=== PATIENT | female | born 1990 | race Caucasian/White ===

== ENCOUNTER 2019-03-15 21:01 | Observation (INO) ==
--- NOTE | 2019-03-15 21:33 | Diag Imaging Result Doc PS360 ---
EXAM: CHEST-1 VIEW 03/15/2019 HISTORY: fever TECHNIQUE: PA chest COMMENT: There is no evidence of acute cardiac or pulmonary disease. There are no previous studies for comparison. IMPRESSION: No acute disease. Electronically signed by Favio Brooks 03/15/2019 9:31 PM
[2019-03-15] MEDS ORDERED: NS 1,000 ML IV ONE (23:26)
[2019-03-15 23:55] LABS: BILIRUBIN URINE NEGATIVE (NEGATIVE); BLOOD URINE 2+ (NEGATIVE); CLARITY CLEAR (CLEAR); COLOR YELLOW; GLUCOSE URINE NEGATIVE (NEGATIVE); KETONE URINE NEGATIVE (NEGATIVE); LEUKOCYTES URINE NEGATIVE (NEGATIVE); NITRITE URINE NEGATIVE (NEGATIVE); PROTEIN URINE NEGATIVE (NEGATIVE); URINE BACTERIA NEGATIVE /HFP; URINE EPITHELIAL CELLS <10 /HPF (<10); URINE SOURCE CLEAN CATCH; URINE WBC <10 /HPF (<10); UROBILINOGEN URINE NORMAL
[2019-03-15 23:56] LABS: AGAP 12; ALBUMIN 4.2 g/dL (3.5-5.0); ALKALINE PHOSPHATASE 75 U/L (32-104); BUN 8 mg/dL (8-22); CALCIUM 8.9 mg/dL (8.8-10.2); CHLORIDE 103 mmol/L (98-107); CK PROFILE 91 U/L (24-173); COSMO 277; CREATININE 0.7 mg/dL (0.5-0.9); ESTIMATED GFR > 60; GLUCOSE 112 mg/dL (70-104); GOT 28 U/L (10-30); GPT 22 U/L (10-36); POTASSIUM 3.9 mmol/L (3.5-5.1); SODIUM 139 mmol/L (136-145); TCO2 25 mmol/L (25-35); TOTAL PROTEIN 6.8 g/dL (6.3-8.3)
--- NOTE | 2019-03-16 | PROVIDER DOCUMENTATION ---
This chart was entered by Zaid Tavarez Scribe, acting as scribe for Alexsander Fleming MD. HPI-Abdominal Pain/GI Problem - General Chief Complaint: SEPSIS ALERT - P Stated Complaint: ABD PAIN Time Seen by Provider: 03/15/19 21:28 Source: patient Allergies/Adverse Reactions: Patient Allergies Allergy/AdvReac Type Severity Reaction Status Date / Time No Known Allergies Allergy Verified 03/15/19 21:10 - History of Present Illness-ABD Nature of Presenting Problems: Pt is a 28 yof who presents to the ED with a CC of abdominal pain. Pt states she is having abdominal pain and cramps and states the onset was this evening. Pt states she has been nauseas all day and reports she had diarrhea this morning. Pt reports she is currently on her period. Upon arrival to the ED the pt had a 101 fever. Pt states at one point her abdominal pain severity made her not be able to stand up and states it radiated to her back. Upon examination the pt was tender to palpation of the suprapubic region of the abdomen. Abdominal Pain Onset Location: reports: suprapubic Quality of Pain: reports: aching, other (Cramping) Severity in ED: reports: mild Onset/Duration: reports: 24 hours ago Timing: reports: still present Exposure to sick contacts?: No Associated Symptoms: reports: diarrhea, fever/chills (Fever), nausea. denies: vomiting Last BM: this morning # of Diarrhea Episodes: 1 # of Vomiting Episodes: 0 Bruising or Bleeding Gums?: No Similar Symptoms Previously?: No Recently seen or treated by another doctor?: No Review of Systems - Adult - REVIEW OF SYSTEMS - ADULT Constitutional: reports: see HPI, fever Eyes: reports: no symptoms reported Ears, Nose, Mouth & Throat: reports: no symptoms reported Cardiovascular: reports: no symptoms reported Respiratory: reports: no symptoms reported Gastrointestinal: reports: see HPI, abdominal pain, diarrhea, nausea. denies: vomiting Genitourinary: reports: see HPI Musculoskeletal: reports: no symptoms reported Integumentary: reports: no symptoms reported Neurological: reports: no symptoms reported Psychiatric: reports: no symptoms reported Endocrine: reports: no symptoms reported Hematologic/Lymphatic: reports: no symptoms reported Allergic/Immunologic: reports: no symptoms reported All Other Systems: Reviewed and Negative Past History - Adult - PAST MEDICAL HISTORY-ADULT Review of Records: reports: Old Records Reviewed, Nursing Assessment Review, Medications Reviewed, Social history reviewed & non-contributory. Major Childhood Illnesses: reports: denies history Cardiovascular: reports: denies history Respiratory: reports: denies history Gastrointestinal: reports: denies history Obstetrical/Gynecological: reports: denies history Genitourinary: reports: denies history Musculoskeletal: reports: denies history Neurological: reports: denies history Psychiatric: reports: anxiety Endocrine/Immune: reports: denies history Other Conditions: reports: denies history - IMMUNIZATION STATUS Childhood Immunizations: See Nurse Assessment Flu Vaccine: See Nurse Assessment - FAMILY HISTORY Family History: reviewed, not pertinent - SOCIAL HISTORY Smoking: denies, non-smoker Substance Use: alcohol Alcohol Use Frequency: occasionally Physical Exam-General - PHYSICAL EXAM-ADULT Initial Vital Signs Reviewed: Yes - CONSTITUTIONAL General Appearance: appears well, alert, no apparent distress - EYES Eyes: PERRL/EOMI, pink conjunctivae - NECK Neck: non-tender, full range of motion - RESPIRATORY Respiratory: chest non-tender, lungs clear, normal breath sounds, no pleuratic chest pain, no respiratory distress, no accessory muscle use - CARDIOVASCULAR Cardiovascular: normal peripheral pulses, regular rate, rhythm, no edema, no gallop, no JVD - GASTROINTESTINAL (ABDOMEN) Abdominal Exam: normal bowel sounds, soft, tenderness - MUSCULOSKELETAL Extremity: normal range of motion, non-tender - SKIN Integumentary: normal color, warm/dry - NEUROLOGIC Neurologic: grossly normal, no motor/sensory deficits - PSYCHIATRIC Psych/Mental Status: normal mood/affect, normal thought content, normal thought process, oriented x 3 Progress - PLAN OF CARE/RESULTS Progress/Plan/Lab Results: Vital Signs - 8 hr 03/15/19 21:07 Temperature 101 F H Pulse Rate 147 H Respiratory Rate 20 Blood Pressure 151/77 O2 Sat by Pulse Oximetry 98 Bedside Urine ED: Urine Bedside Start: 03/15/19 22:48 Freq: ORDERED Status: Active Protocol: Activity Type Activity Date Activity User E-Sign Co-Sign Detail Recorded Client Recorded Date Recorded By Document 03/15/19 22:49 [id number] 03/15/19 22:49 [id number] 03/15/19 22:49 Point of Care [Bedside Point of Care] -Lot # [id number] - Results Negative -Control Line Visible? Yes Orders Category Date Time Status Cardiac Monitoring DIRECTED Care 03/15/19 21:11 Active ED: Urine Bedside ORDERED Care 03/15/19 22:48 Active IV Insertion ORDERED Care 03/15/19 21:11 Active Notify MD of + Sepsis Screen NOW Care 03/15/19 21:11 Active Notify Physician As Ordered Care 03/15/19 21:11 Active CHEST-1 VIEW [RAD] Stat Exams 03/15/19 21:11 Completed BLOOD CULTURE [BLDCUL] Stat Lab 03/15/19 22:46 Ordered CBC WITH DIFF [HEME] Stat Lab 03/15/19 22:46 Ordered CK PROFILE [SP CHEM] Stat Lab 03/15/19 22:46 Ordered COMPREHENSIVE METABOLIC PANEL [CHEM] Stat Lab 03/15/19 22:46 Ordered LACTATE, PLASMA [CHEM] Lab 03/15/19 22:46 Ordered LACTATE, PLASMA [CHEM] Lab 03/16/19 00:15 Uncollected LACTATE, PLASMA [CHEM] Lab 03/16/19 03:15 Uncollected PROTIME WITH INR [COAG] Stat Lab 03/15/19 22:46 Stop Req PTT [COAG] Stat Lab 03/15/19 22:46 Stop Req TROPONIN T Stat Lab 03/15/19 22:[address] W/POSS RFLX CULT [URINALYSIS] Stat Lab 03/15/19 23:05 Ordered Result Diagrams: 03/15/19 23:17 03/15/19 23:17 - EKG 1 Time of EKG reading by physician:: 01:55 EKG Read and Signed by:: Alexsander Fleming EKG Interpretation (*Must complete 3 of following elements*): Normal Rate: 130 Rhythm: Sinus tachycardia [place]: normal QRS: normal [place] Interval: normal ST Wave: normal - XRAY 1 XRAY: Bilateral XRAY Study: Chest Impression: See EMR Report (EXAM: CHEST-1 VIEW 03/15/2019 HISTORY: fever TECHNIQUE: PA chest COMMENT: There is no evidence of acute cardiac or pulmonary disease. There are no previous studies for comparison. IMPRESSION: No acute disease. Electronically signed by Favio Brooks 03/15/2019 9:31 PM 03/15/192130 Interpreting Physician: Favio Brooks MD Dictated Date/Time: 03/15/192129 cc: Alexsander Fleming MD; None,PCP) - CT/MRI 1 CT Study: Abdomen, Pelvis CT Results: mesenteric lymph nodes, possible mesenteric adenitis - CONSULTS/PCP/HOSPITALIST Notification #1 *Consult/PCP/Hospitalist*: Dr. Black, hospitalist Time Discussed: 03:55 Consult Disposition: Admit Departure - Departure Date of Disposition Decision: 03/16/19 Time of Disposition Decision: 01:43 DIAGNOSIS: Diarrheal disease, Tachycardia Disposition: ADMITTED INPATIENT 09 Certified Medical Emergency: Emergent Condition: Stable - Critical Care Note This patient required my direct & personal management of CC.: No Attestation - Physician/ SHANITA Attestation Patient care was provided by Advanced Practice Provider:: No The physician spent face to face time with patient:: Yes Advanced Practice Provider documentation review:: Supervising physician onsite and consulted in the evaluation and care of this patient. The physician did have a face to face encounter with the patient. This chart was documented by the indicated scribe, (Zaid Tavarez, Kristan) and accurately reflects the services I performed and decisions made by me, Alexsander Fleming MD, as attested by the provider's signature.
[2019-03-16 00:18] LABS: BASO# 0.01 X1000 (0.0-0.2); BASO% 0.2 % (0.0-0.8); EOS# 0.03 X1000 (0.0-0.7); EOS% 0.5 % (0.0-10.0); HEMATOCRIT 35.8 % (37.0-47.0); HEMOGLOBIN 11.7 g/dL (12.0-16.0); IMM GRAN# 0.01 X1000 (0.0-0.04); IMM GRAN% 0.2 % (0.0-0.5); LYMPH% 8.1 % (20.5-51.1); MCH 28.1 PG (27-31); MCHC 32.7 g/dL (33-37); MCV 86.1 FL (81-99); MONO# 0.27 X1000 (0.11-0.59); MONO% 4.3 % (1.7-9.3); MPV 10.6 FL (7.4-10.4); NEUT# 5.39 X1000 (1.4-6.5); NEUT% 86.7 % (42.2-75.2); PLT 239 X1000 (130-400); RBC 4.16 XMIL (4.2-5.4); RDW 14.2 % (11.5-14.5); WBC 6.21 X1000 (4.8-10.8)
[2019-03-16 01:07] LABS: BANDS 3 % (0-1); EOS 2 % (1-10); LARGE PLATELETS OCCASIONAL; LYMPHS 4 % (21-51); MONO 2 % (1-9); SEGS 89 % (42-75); SPHEROCYTES 1+
[2019-03-16] MEDS ORDERED: SEPTRA DS PO ONE (01:42)
[2019-03-16 02:06] LABS: UR AMPHETAMINES QUAL NONE DETECTED (NONE DETECT); UR BARBITUATES QUAL NONE DETECTED (NONE DETECT); UR BENZODIAZEPIN QUAL NONE DETECTED (NONE DETECT); UR CANNABINOIDS QUAL NONE DETECTED (NONE DETECT); UR COCAINE QUAL NONE DETECTED (NONE DETECT); UR METHADONE QUAL NONE DETECTED (NONE DETECT); UR METHAMPHETAMINE QUAL NONE DETECTED (NONE DETECT); UR OPIATES QUAL NONE DETECTED (NONE DETECT); UR OXYCODONE QUAL NONE DETECTED (NONE DETECT); UR PCP QUAL NONE DETECTED (NONE DETECT); UR PROPOXYPHENE QUAL NONE DETECTED (NONE DETECT); UR TCA QUAL NONE DETECTED (NONE DETECT)
[2019-03-16] MEDS ORDERED: NS 1,000 ML IV ONE ×2 (02:19→03:56)
[2019-03-16] MEDS ORDERED: ZOFRAN IV PRN (03:56)
--- NOTE | 2019-03-16 04:28 | EKG Report ---
Test Performed on : 03/16/2019 01:54:58 AM Test Reason : pain Blood Pressure : / mmHG Vent. Rate : 130 BPM Atrial Rate : 130 BPM P-R Int : 144 ms QRS Dur : 070 ms QT Int : 288 ms P-R-T Axes : 033 045 018 degrees QTc Int : 423 ms Sinus tachycardia. Otherwise normal ECG No previous ECGs available Unconfirmed Result
[2019-03-16] MEDS ORDERED: TYLENOL PO SCH (08:00)
--- NOTE | 2019-03-16 08:21 | Diag Imaging Result Doc PS360 ---
CT ABD/PELVIS W/IV CONT ONLY - 03/15/2019 INDICATION: lower abdomen pain COMPARISON: None FINDINGS: The lung bases are clear and the heart size is normal. The liver, gallbladder, spleen, pancreas, adrenals, and kidneys are normal. There are several slightly enlarged lymph nodes in the right lower quadrant of the mesentery compatible with mesenteric adenitis. No bowel obstruction. Normal appendix. No constipation. There is a 2 cm simple right ovarian cyst. No free fluid. Urinary bladder, uterus, and rectum are normal. Bones are intact and well mineralized. IMPRESSION: 1. Right lower quadrant mesenteric adenitis. Normal appendix. 2. 2 cm simple right ovarian cyst. This exam was performed using automated exposure control, adjustment of mA or kV according to patient size, and/or use of iterative reconstruction technique Electronically signed by Yunier Sequeira 03/16/2019 8:19 AM
[2019-03-16] MEDS ORDERED: NS 1,000 ML IV SCH (10:45)
[2019-03-16] MEDS ORDERED: LOPRESSOR PO SCH (11:45)
[2019-03-16 12:42] VITALS: BP 124/71
--- NOTE | 2019-03-16 14:12 | HISTORY AND PHYSICAL ---
CHIEF COMPLAINT: Diarrhea and abdominal pain. HISTORY OF PRESENT ILLNESS: This is a 28-year-old female, who presented to the emergency room complaining of abdominal pain and 1 episode of diarrhea. She describes this diarrhea pain as a crampy type pain. It is primarily in bilateral lower quadrants. She denies any black or bloody vomitus or stools, any vomiting, any sick contacts. PAST MEDICAL HISTORY: Anxiety, tachycardia. PAST SURGICAL HISTORY: Denies. SOCIAL HISTORY: She is , has 2 children. Denies any alcohol, tobacco or illicit drug use. ALLERGIES: No known drug allergies. HOME MEDICATIONS: None. REVIEW OF SYSTEMS: Discussed with patient with pertinent positives stated in the HPI. She denied any syncope, dizziness, chest pain or palpitations, shortness of breath or cough, any night sweats, recent weight loss or weight gain, any vomiting, black or bloody vomitus or stools, any hematuria, dysuria, frequency, urgency. PHYSICAL EXAM: GENERAL: This is a 28-year-old female who is sitting up in the bed in no distress. VITAL SIGNS: Blood pressure is 112/56 with heart rates ranging 108 to 124, temperature is 98.8 degrees with room air saturations 100%. EYES: Pupils equal, round, react to light. EOMS are intact. Sclerae anicteric. HENT: Head is normocephalic, atraumatic. Mucous membranes are moist. NECK: Supple. Trachea midline. CARDIOVASCULAR: Regular rate and rhythm. S1, S2 appreciated. Calves are nontender bilateral. She has no lower extremity edema. Peripheral pulses are palpable. PULMONARY: Breath sounds clear. No increased work of breathing noted. Chest rises and falls symmetrically with respiration. GASTROINTESTINAL: Abdomen is soft, nontender, nondistended. Bowel sounds in all 4 quadrants. GENITOURINARY: No CVA, no suprapubic tenderness. NEUROLOGIC: She is alert and oriented x3. SKIN: Warm and dry. LABORATORY DATA: 1. WBC is 6.2 with hemoglobin 11.7, hematocrit 35.8, platelets of 239. Sodium 139, potassium 3.9, BUN 8, creatinine 0.7 with glucose of 112. Urinalysis has 2+ blood with 10 to 20 microscopic red blood cells, less than 10 microscopic white blood cells or epithelial cells. Urine drug screen reveals none detected. Blood cultures are pending. X-RAYS: 1. Chest x-ray revealed no acute disease. 2. CT of the abdomen and pelvis revealed right lower quadrant mesenteric adenitis with a normal appendix with a 2 cm simple right ovarian. 3. EKG reveals sinus tachycardia at a rate of 130. ASSESSMENT: 1. Mesenteric adenitis. 2. Tachycardia, chronic. 3. Fever, resolved. PLAN: The patient has been admitted to the medical-surgical room, placed on telemetry which will continue. She denies any further nausea. She has had no vomiting. She has had no further diarrhea other than the 1 stool this morning. We will start a regular diet. See how she tolerates this. Continue with IV hydration. The patient states that she has had a long history of tachycardia, that she has never been told a reason for this. It does not seem to affect her daily life. She denies any palpitations. We will start her on metoprolol 12.5 p.o. b.i.d. and continue to monitor. Further treatments pending hospital course. Dictated by UMER Carter for Parmjit Black MD cc: UMER Carter MD
--- NOTE | 2019-03-16 21:07 | HISTORY AND PHYSICAL ---
ADDENDUM: Patient seen examined by me. Full note dictated and discussed with nurse practitioner. The patient presented to the hospital with diarrhea, subsequently diagnosed with tachycardia and volume depletion. She will be admitted to the hospital. Thankfully, her CT showed mesenteric adenitis. She has had 101 degrees fever. We will admit her, give her IV fluids and will follow. Expect this to be a viral gastroenteritis. cc: Parmjit Black MD
--- NOTE | 2019-03-16 21:11 | DISCHARGE SUMMARY ---
ADMISSION DATE: 03/16/2019 DISCHARGE DATE: 03/16/2019 DISCHARGE DIAGNOSES: 1. Viral gastroenteritis. 2. Tachycardia. 3. Mesenteric adenitis. 4. Diarrhea. 5. Volume depletion, resolved. CONSULTATIONS: None. PROCEDURES: None. BRIEF HOSPITAL COURSE: The patient is a 28-year-old female who presented to the hospital with nausea, vomiting and abdominal pain. She was admitted to the hospital. She was given IV fluids and Tylenol. The patient had a CT that demonstrated mesenteric adenitis. Thankfully, she continued to improve, although slowly. Her fever resolved. On discharge she is awake, alert. She is tolerating a regular diet; therefore, we will discharge her home. DISPOSITION: The patient will be discharged home. She will follow up with her primary care if symptoms worsen or return. No other changes were made in her diet or activity otherwise. cc: Parmjit Black MD
== END 2019-03-16 13:48 | disposition home or self-care (01) ==
LOC: P.EDIPHOLD 21:01 → P.ED 21:01 → P.MEDSURG 03-16 07:39
PROVIDERS: ATTEND Family Medicine
CPT/HCPCS: 71010; 71045; 74177; 80053; 80104; 80301; 80305; 81001; 82550; 83605; 85025; 87040; 93005; A9270; G0431; G0434; G0477; J7030; Q9967